=== PATIENT | female | born 1995 | race Caucasian/White ===

== ENCOUNTER 2019-01-08 17:36 | Emergency (ER) | payer OTHER ==
[2019-01-08 19:28] LABS: PLATELET COUNT 331 10^3/uL (150-400)
--- NOTE | 2019-01-08 19:29 | EDPHY ---
H & P Time Seen by Provider: 01/08/19 19:14 HPI/ROS: CHIEF COMPLAINT: Left lower quadrant abdominal pain HISTORY OF PRESENT ILLNESS: 23-year-old woman woke up at 3:00 a.m. Today with symptoms. Took some ibuprofen and got better but at 6:00 a.m. It was really severe. Left lower quadrant radiates the left hip, better when the sitting down but worse when walking or moving. She removed her nuva ring and her last menstrual period was last Monday. She presents to the emergency department with improved pain but still present. Not associated with fever or chills or vomiting or diarrhea or urinary symptoms or vaginal discharge or bleeding. Currently symptoms mild but were very severe at the time of onset. REVIEW OF SYSTEMS: Eye: no change in vision ENT: no sore throat Cardiac: no chest pain or syncope Pulmonary: no cough or SOB Abdomen: HPI Musculoskeletal: no back pain Skin: no rash Neuro: no headache Constitutional: no fever : no urinary symptoms. No dysuria or urinary frequency or hematuria. A comprehensive 10 point review of systems is otherwise negative aside from elements mentioned in the history of present illness. PAST MEDICAL HISTORY: Asthma, breast surgery, tonsillectomy Social history: Here with boyfriend, occasional alcohol only. General Appearance: Alert and conversant, cooperative. Eyes: No scleral icterus. ENT, Mouth: Normal mucous membranes. Respiratory: Normal respiratory effort, breath sounds equal, lungs are clear to auscultation. Cardiovascular: Regular rate and rhythm. Gastrointestinal: Abdomen is soft, very slight left lower quadrant tenderness but no hernia and no rebound or guarding. No peritoneal signs. Neurological: Alert, face symmetric, normal motor and sensory in extremities. Skin: Warm and dry, no rashes. Musculoskeletal: No peripheral edema. Psychiatric: Not agitated. Emergency Department course/MDM: CBC and . Ultrasound discussed with the patient. Considered but I think unlikely to be appendicitis, PID, UTI, ectopic, hernia. Worse with movement makes renal colic less likely. No right-sided pain. 2025: normal pelvic Us per [place]. Smoking Status: Never smoked Constitutional: Initial Vital Signs Temperature (C) 36.7 C 01/08/19 17:55 Heart Rate 66 01/08/19 17:55 Respiratory Rate 18 01/08/19 17:55 Blood Pressure 148/99 H 01/08/19 17:55 O2 Sat (%) 97 01/08/19 17:55 O2 Delivery Mode Room Air Allergies/Adverse Reactions: cefuroxime [From Ceftin] Allergy (Verified 01/08/19 17:55) Medical Decision Making - Diagnostics Imaging Results: Imaging Impressions Pelvic/Renal Ultrasound 01/08/19 19:35 Impression: Normal pelvic ultrasound. Findings discussed with JP WALKER 01/08/2019 at 20:26. Imaging: Discussed imaging studies w/ pharmacy helper Radiologist - Data Points Laboratory Results: Laboratory Results 01/08/19 19:05 01/08/19 01/08/19 01/08/19 20:30 19:05 19:05 WBC 7.27 10^3/uL 10^3/uL (3.80-9.50) RBC 4.69 10^6/uL 10^6/uL (4.18-5.33) Hgb 14.1 g/dL g/dL (12.6-16.3) Hct 42.5 % % (38.0-47.0) MCV 90.6 fL fL (81.5-99.8) MCH 30.1 pg pg (27.9-34.1) MCHC 33.2 g/dL g/dL (32.4-36.7) RDW 12.4 % % (11.5-15.2) Plt Count 331 10^3/uL 10^3/uL (150-400) MPV 10.2 fL fL (8.7-11.7) Neut % (Auto) 44.7 % % (39.3-74.2) Lymph % (Auto) 43.7 % % (15.0-45.0) [place] % (Auto) 9.4 % % (4.5-13.0) Eos % (Auto) 1.1 % % (0.6-7.6) Baso % (Auto) 0.8 % % (0.3-1.7) Nucleat RBC Rel Count 0.0 % % (0.0-0.2) Absolute Neuts (auto) 3.25 10^3/uL 10^3/uL (1.70-6.50) Absolute Lymphs (auto) 3.18 10^3/uL H 10^3/uL (1.00-3.00) Absolute Monos (auto) 0.68 10^3/uL 10^3/uL (0.30-0.80) Absolute Eos (auto) 0.08 10^3/uL 10^3/uL (0.03-0.40) Absolute Basos (auto) 0.06 10^3/uL 10^3/uL (0.02-0.10) Absolute Nucleated RBC 0.00 10^3/uL 10^3/uL (0-0.01) Immature Gran % 0.3 % % (0.0-1.1) Immature Gran # 0.02 10^3/uL 10^3/uL (0.00-0.10) Beta HCG, Qual NEGATIVE Urine Color YELLOW Urine Appearance HAZY Urine pH 7.0 (5.0-7.5) Ur Specific [place] 1.013 (1.002-1.030) Urine Protein NEGATIVE (NEGATIVE) Urine Ketones NEGATIVE (NEGATIVE) Urine Blood NEGATIVE (NEGATIVE) Urine Nitrate NEGATIVE (NEGATIVE) Urine Bilirubin NEGATIVE (NEGATIVE) Urine Urobilinogen NEGATIVE EU EU (0.2-1.0) Ur Leukocyte Esterase NEGATIVE (NEGATIVE) Urine Glucose NEGATIVE (NEGATIVE) Departure - Departure Disposition: Home, Routine, Self-Care Clinical Impression: Abdominal pain Qualifiers: Abdominal location: left lower quadrant Qualified Code(s): R10.32 - Left lower quadrant pain Condition: Good Instructions: Acute Abdominal Pain (ED) Additional Instructions: Oral ibuprofen 600 mg by mouth every 6-8 hours as needed for pain over the next 3 days. Return if you get worse or severe pain, fever, not improving in 12 hr. Referrals: Cassidy Hernandez DO [Doctor of Osteopathy] - As per Instructions
[2019-01-08 20:32] VITALS: BP 130/98
== END 2019-01-08 20:35 | disposition home or self-care (01) ==
DX: R10.32 Left lower quadrant pain (principal)